=== PATIENT | female | born 1970 | race Caucasian/White ===

== ENCOUNTER → 2018-07-16 | Outpatient (CLI) | payer OTHER ==
--- NOTE | 2018-07-16 13:42 | CT ---
EXAM DESCRIPTION: Chest w/o Contrast CLINICAL HISTORY: 48 years, Female, SOB COMPARISON: None TECHNIQUE: Thin-section noncontrast axial CT images are obtained according to our protocol. Reconstructed MPR images are created and reviewed as well. FINDINGS: Lungs: No consolidating pulmonary infiltrate or groundglass infiltrate. Scattered centrilobular emphysematous changes are seen in both upper lobes. Mild subpleural fibrotic changes are seen with a few tiny apical subpleural granulomas, benign in appearance. No worrisome lesion or active appearing infiltrate to suggest pneumonia. Some clustered subpleural cystic changes are thought to be emphysematous rather than early honeycomb fibrosis. Follow up in a few years by be considered. No worrisome pulmonary mass or nodule. Mediastinum: Lymph nodes are normal in size. Normal vascular contours. Heart size is normal with no pericardial effusion. Chest wall/axilla: No mass or adenopathy. Dense glandular breast tissue bilaterally. Nodular area in the tail of the left breast may be intramammary lymph node. Correlate with mammographic and sonographic findings. Lower neck/supraclavicular: No mass or adenopathy. Upper abdomen: Small nonobstructing calculus in the upper to mid left kidney. Otherwise unremarkable upper abdominal viscera. Coronal and sagittal reformatted images confirm the findings. IMPRESSION: Scattered upper lobe centrilobular emphysematous changes with mild subpleural scarring. Otherwise no acute process in the chest. This exam was performed according to our departmental dose-optimization program, which includes automated exposure control, adjustment of the mA and/or kV according to patient size and/or use of iterative reconstruction technique. Total DLP equals 194.56 mGycm. Electronically signed by: Landen Campbell MD 07/16/2018 1:39 PM CDT
== END ==
LOC: CT 10:11
PROVIDERS: ATTEND Family Medicine
DX: R06.02 Shortness of breath (principal)

== ENCOUNTER → 2018-09-28 | Outpatient (CLI) | payer OTHER ==
--- NOTE | 2018-09-28 12:55 | MRI ---
MRI right shoulder without contrast INDICATION: Shoulder pain rotator cuff syndrome TECHNIQUE: Noncontrast MR imaging right shoulder standard protocol FINDINGS: Intact subscapularis. No bicep rupture or dislocation. AC joint is intact. Mild thinning of the supraspinatus without rupture or retraction. Intact infraspinatus. Mild glenohumeral osteoarthrosis with inferomedial humeral osteophyte. Minimal labral degeneration. No advanced muscle edema or atrophy. Minimal grade 1 marbling throughout the rotator cuff muscle bellies. IMPRESSION: Thinning of the supraspinatus indicating low-grade chronic partial tear Grade 1 marbling throughout the rotator cuff muscle bellies Mild glenohumeral osteoarthrosis. Electronically signed by: Gerry Watkins MD 09/28/2018 12:53 PM CDT
== END ==
LOC: MERGE 09:00 → MRI 09:12
PROVIDERS: ATTEND Orthopaedic Surgery
DX: M75.101 Unspecified rotator cuff tear or rupture of right shoulder, not specified as traumatic (principal); M19.011 Primary osteoarthritis, right shoulder